=== PATIENT | male | born 1960 | race Caucasian/White ===

== ENCOUNTER 2016-10-06 21:09 | Emergency (ER) | payer MEDICAID ==
[~2016-10-06] VITALS: Ht 172.7 cm; Wt 92.5 kg
[2016-10-06 21:11] VITALS: Ht 172.7 cm; Wt 92.5 kg
[2016-10-06] MEDS ORDERED: CEPHALEXIN 500 MG CAP PO STA (21:21)
[2016-10-06] MEDS ORDERED: TRIMETHOPRIM/SULFAMETHOX (DS) TAB PO STA (21:21)
[2016-10-06] MEDS ORDERED: BEN50 PO (21:25)
[2016-10-06] MEDS ORDERED: CEPH-443 PO (21:25)
[2016-10-06] MEDS ORDERED: PRED20TA PO (21:25)
[2016-10-06] MEDS ORDERED: DIPHENHYDRAMINE 50 MG INJ IM ONE (21:30)
[2016-10-06] MEDS ORDERED: METHYLPREDNISOLONE 125 MG INJ IM ONE (21:30)
--- NOTE | 2016-10-06 21:38 | ERD ---
ER Documentation Chief Complaint Date/Time DATE: 10/06/16 TIME: 21:30 Chief Complaint sp insect bite today, swelling of chin HPI This is a 56-year-old male presenting to the emergency department accompanied by his daughter complaining of swelling to his lower chin status post bee stings that occurred earlier today. Patient states that he shaved his chin and face which caused it to start being red and swollen, patient denies any pain or itchiness associated with it. Patient had an insect bite that occurred on his hands and his neck as well however he removed the stingers on the hand and neck. Patient denies taking any medications for this ROS All systems reviewed and are negative except as per history of present illness. Medications Home Meds Active Scripts Cephalexin* (Keflex*) 500 Mg Capsule, 500 MG PO QID for 7 Days, CAP Prov:LUIZ REBOLLEDO PA-C 10/06/16 Diphenhydramine Hcl* (Benadryl*) 50 Mg Cap, 50 MG PO Q6H Y for ITCHING/RASH, # 30 CAP Prov:LUIZ REBOLLEDO PA-C 10/06/16 Prednisone* (Prednisone*) 20 Mg Tab, 40 MG PO DAILY for 4 Days, TAB Prov:LUIZ REBOLLEDO PA-C 10/06/16 Allergies Allergies: Coded Allergies: No Known Allergy (Unverified , 10/06/16) PMhx/Soc Hx Alcohol Use: No Hx Substance Use: No Hx Tobacco Use: No Physical Exam Vitals Vital Signs Date Time Temp Pulse Resp B/P Pulse Ox O2 Delivery O2 Flow Rate FiO2 10/06/16 21:11 98.3 66 20 158/90 100 Physical Exam General: WD/WN, in no apparent distress, non-toxic appearing HENT: NC/AT Eyes: Conjunctiva normal Neck: Supple Pulm: Clear to auscultation, normal labored breathing; no wheezing/rales/ rhonchi heard CV: Good capillary refill GI: Non-distended, no guarding Back: No masses Ext: No clubbing, cyanosis, or edema Neuro: Moves on all fours Skin: patch of erythema to the lower chin, no induration. NTTP, mild warmth Normal turgor, color, and temperature. No ulcerations or rashes noted. Psych: Normal mood Results 24 hrs Current Medications Medications (Trade) Dose Ordered Sig/Jl Route PRN Reason Start Time Stop Time Status Last Admin Dose Admin Diphenhydramine HCl (Benadryl) 50 mg ONCE ONCE IM 10/06/16 21:30 10/06/16 21:31 Methylprednisolone Sodium Succinate (Solu-Medrol) 125 mg ONCE ONCE IM 10/06/16 21:30 10/06/16 21:31 Cephalexin (Keflex) 500 mg ONCE STAT PO 10/06/16 21:21 10/06/16 21:23 DC Trimethoprim/ Sulfamethoxazole (Bactrim (Ds)) 1 tab ONCE STAT PO 10/06/16 21:21 10/06/16 21:23 DC Procedures/MDM This is a 56-year-old male presenting to the emergency department accompanied by his daughter complaining of swelling to his lower chin status post bee sting that occurred earlier today. Patient states that he shaved his chin and face which caused it to start being red and swollen. Patient had bee bite that occurred on his hands and his neck as well however he removed the stingers on the hand and neck. This is likely an allergic reaction coupled with irritation from shaving. There was no evidence of cellulitis, anaphylaxis. Patient has stable vital signs. In the ED patient was given Solu-Medrol and Benadryl. He is stable to be discharged home with precautions to return to the emergency room for any worsening signs or symptoms. Patient was given prescription for prednisone, benadryl and Keflex for prophylaxis. He understands and agrees with this plan Stable for discharge home Departure Diagnosis: Primary Impression: Allergic reaction Condition: Stable Patient Instructions: First Aid: Allergic Reactions, Allergic Reaction, Insect (Local) Additional Instructions: FOLLOW UP WITH YOUR PRIMARY CARE PHYSICIAN TOMORROW.Return to this facility if you are not improving as expected. Take all medicines as directed. Return to this facility if you are not improving as expected. LUIZ REBOLLEDO PA-C October 06, 2016 21:38
== END 2016-10-06 21:45 | disposition home or self-care (01) ==
LOC: FTE 21:09
DX: R22.0 Localized swelling, mass and lump, head (principal)
CPT/HCPCS: J1200; J2930; Z7610

== ENCOUNTER 2017-10-31 20:03 | Emergency (ER) | END 2017-10-31 20:55 | disposition home or self-care (01) ==

== ENCOUNTER 2017-11-01 11:02 | Emergency (ER) | END 2017-11-01 12:05 | disposition home or self-care (01) ==